=== PATIENT | male | born 1995 | race African-American/Black ===

== ENCOUNTER 2016-09-08 02:44 | Emergency (ER) | payer SELFPAY ==
--- NOTE | 2016-09-08 03:07 | ED ---
Lei Jay Michael, scribed for Scot Christopher MD on 09/08/16 at 0257 . Substance Abuse/Use - HPI Summary HPI Summary: 21 y/o male comes to the ED presenting with alcohol abuse today at 0200. The pt was unresponsive TSO and the alcohol amount consumed is unknown. HPI is limited due to level 5 caveat. - History Of Current Complaint Chief Complaint: EDSubstanceAbuse Stated Complaint: ALCOHOL CONSUMPTION Time Seen by Provider: 09/08/16 02:44 Hx Obtained From: EMS, Medical Records Hx From Patient Unobtainable Due To: Altered Mental Status - level 5 caveat Onset/Duration of Drug/ETOH Abuse: Hours Ingestion History: Type/Name Of Drug - alcohol Overdose Characteristics: Oral Timing Of Abuse: Binge Use Severity Initially: Moderate Severity Currently: Moderate Character: Stuporous Associated Signs And Symptoms: Altered Mental Status - Allergies/Home Medications Allergies/Adverse Reactions: Allergies Allergy/AdvReac Type Severity Reaction Status Date / Time No Known Allergies Allergy Verified 09/08/16 02:57 PMH/Surg Hx/FS Hx/Imm Hx Previously Healthy: Yes - unable to obtain due to AMS Infectious Disease History: Denies: Traveled Outside the [place] in Last 30 Days - Social History Occupation: Student Review of Systems - ROS Summary Review of Systems Summary: ROS is limited due to level 5 caveat. Negative: Fever Neurological: Other - AMS All Other Systems Reviewed And Are Negative: No Physical Exam Triage Information Reviewed: Yes Vital Signs On Initial Exam: Initial Vitals Temp Pulse Resp BP Pulse Ox 97.4 F 111 21 110/80 97 09/08/16 02:50 09/08/16 02:50 09/08/16 02:50 09/08/16 02:50 09/08/16 02:50 Vital Signs Reviewed: Yes Appearance: Positive: Well-Appearing, No Pain Distress Skin: Positive: Warm Head/Face: Positive: Normal Head/Face Inspection Eyes: Positive: NAHUN ENT: Positive: Hearing grossly normal Neck: Positive: Supple Respiratory/Lung Sounds: Positive: Clear to Auscultation, Breath Sounds Present Cardiovascular: Positive: RRR Abdomen Description: Positive: Nontender, Soft Bowel Sounds: Positive: Present Musculoskeletal: Positive: Strength/ROM Intact Neurological: Positive: Alert, Oriented to Person Place, Time Psychiatric: Positive: Affect/Mood Appropriate Diagnostics - Vital Signs Vital Signs Temp Pulse Resp BP Pulse Ox 09/08/16 02:50 97.4 F 111 21 110/80 97 - Laboratory Lab Statement: Any lab studies that have been ordered have been reviewed, and results considered in the medical decision making process. Re-Evaluation - Re-Evaluation First Eval Change: Improved Course/Dx - Diagnoses Provider Diagnoses: Alcohol abuse Discharge - Discharge Plan Condition: Stable Disposition: HOME Patient Education Materials: Abuse of Alcohol (ED) [facility] [Primary Care Provider] - Additional Instructions: Please follow up with your primary care physician within the next 2-3 days. The documentation as recorded by the Lei ibarra Michael accurately reflects the service I personally performed and the decisions made by me, Scot Christopher MD.
[2016-09-08 06:38] VITALS: BP 113/67
== END 2016-09-08 06:33 | disposition home or self-care (01) ==
LOC: ED 02:44
DX: F10.10 Alcohol abuse, uncomplicated (principal)
CPT/HCPCS: 36415; 80320; 99283; G0480